=== PATIENT | male | born 1970 ===

== ENCOUNTER 2018-12-13 05:43 | Day surgery (SDC) | payer OTHER ==
--- NOTE | 2018-12-12 18:44 | Pre-Procedure Note/Attestation ---
Pre-Procedure Note/Attestation Complete Prior to Procedure Planned Procedure: not applicable Procedure Narrative: 1. ORIF nasa fracture 2. Septoplasty 3. SMR inf right turbinate 4. SMR inf left turbinate Indications for Procedure Pre-Operative Diagnosis: 1. Nasal fracture 2. Nasal septal deviation 3. Hypertrophied right inferior turbinate 4. Hypertrophied left inferior turbinate Attestation I attest that I discussed the nature of the procedure; its benefits; risks and complications; and alternatives (and the risks and benefits of such alternatives ), prior to the procedure, with the patient (or the patient's legal data entry representative). I attest that, if there was a reasonable possibility of needing a blood transfusion, the patient (or the patient's legal data entry representative) was given the [place] [employer] standardized written summary, pursuant to the José Edmond Blood Safety Act ([place] Health and Safety Code # 1645, as amended). I attest that I re-evaluated the patient just prior to the surgery and that there has been no change in the patient's H&P,labs have been supplied by pts PMD -faxed over 12/12/18: John Jansen MD Dec 12, 2018 18:44
--- NOTE | 2018-12-12 18:45 | Brief Operative Note ---
Immediate Post Operative Note Operative Note Pre-op Diagnosis: 1. Nasal fracture 2. Nasal septal deviation 3. Hypertrophied right inferior turbinate 4. Hypertrophied left inferior turbinate Procedure: 1. ORIF nasa fracture 2. Septoplasty 3. SMR inf right turbinate 4. SMR inf left turbinate Post-op Diagnosis: same as pre-op Surgeon: John Jansen Case Specialist: none Additional Surgeons: none Anesthesiologist: Violetta Anesthesia: general Specimen: none Complications: none Condition: stable Fluids: D5LR Estimated Blood Loss: volume - 50 cc Packing: Stamberger nasal gel Implant(s) used?: No John Jansen MD Dec 12, 2018 18:45
--- NOTE | 2018-12-12 18:49 | Discharge Instructions ---
Discharge Instructions Discharge Instructions Follow up with: Dr. Jansen at his office 12/21/18 11AM Diet: regular Resume Normal Activity?: No Activity: light activity Pneumonia Vaccine: pt refused vaccine Influenza Vaccine (Jul to Dec): pt refused vaccine Follow Up Orders Pt has printed instructions given to him at his pre op visit along with post op meds-Amox and [place] Return to Work/School on: Dec 26, 2018 Special Instructions ice to face x 48 hours For Surgical Patients Dressing Care: may change May shower: No For Congestive Heart Failure Reminder Report to your physician any weight gain of 5 pounds or more in one week. John Jansen MD Dec 12, 2018 18:49
--- NOTE | 2018-12-12 18:59 | History & Physical ---
History of Present Illness General Date patient seen: Nov 30, 2018 Time patient seen: 11:00 Present Illness HPI Nasal fracture at work Allergies: Coded Allergies: No Known Allergies (Unverified , 12/12/18) Patient History History Provided By: Patient Healthcare decision maker Resuscitation status Advanced Directive on File Review of Systems Review of Symptoms General ROS: no weight loss or fever Psychological ROS: no depression or mood changes, no memory loss Ophthalmic ROS: no visual changes or eye irritation ENT ROS: no hearing loss, dizziness. 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 Allergy and Immunology ROS: no allergic symptoms or urticaria Hematological and Lymphatic ROS: no swollen glands, unusual bleeding or bruising Endocrine ROS: no polyuria, polydipsia, weight changes, temperature intolerance Respiratory ROS: no cough, shortness of breath, or wheezing Cardiovascular ROS: no chest pain or dyspnea on exertion Gastrointestinal ROS: denies abdominal pain, bright red blood in stool. Musculoskeletal ROS: no myalgias or arthralgias Neurological ROS: no TIA or stroke symptoms Dermatological ROS: no new or changing skin lesions, rashes or pruritis Physical Exam Physical Exam General appearance: alert, cooperative, no distress, appears stated age NOSE: OFF TO THE RIGHT, SEPTAL DEVIATION, HYPERTROPHIED BILATERAL INFERIOR TURBINATES. Head: Normocephalic, without obvious abnormality, atraumatic Eyes: conjunctivae/corneas clear. PERRL, EOM's intact. Fundi benign Throat: Lips, mucosa, and tongue normal. Teeth and gums normal Neck: supple, symmetrical, trachea midline, no adenopathy, thyroid: not enlarged, symmetric, no tenderness/mass/nodules, no carotid bruit and no JVD Lungs: clear to auscultation bilaterally Heart: regular rate and rhythm, S1, S2 normal, no murmur, click, rub or gallop Abdomen: soft, non-tender. Bowel sounds normal. No masses, no organomegaly Extremities: extremities normal, atraumatic, no cyanosis or edema Pulses: 2+ and symmetric Skin: Skin color, texture, turgor normal. No rashes or lesions Neurologic: Grossly normal HT 64 INCHES, WT 150LBS, BP 120/80, HR 75, RR 13 IN CHART, WERE SENT YESTERDAY TO PER OP. Height (Feet): 5 Height (Inches): 4 Weight (Pounds): 150 Medications Current Medications Medications (Trade) Dose Ordered Sig/[place] Route PRN Reason Start Time Stop Time Status Last Admin Dose Admin Cefazolin Sodium 1 gm/Dextrose 55 ml @ 110 mls/hr ONCE ONCE IV 12/13/18 07:15 12/13/18 07:44 Dexamethasone Sodium Phosphate (Decadron 4mg/ml vial) 8 mg ONCE ONCE IVP 12/13/18 07:00 12/13/18 07:01 Assessment/Plan Status: stable Status Narrative Candidate for 1. ORIF nasa fracture 2. Septoplasty 3. SMR inf right turbinate 4. SMR inf left turbinate Assessment/Plan Cleared for surgery as an outpt. [facility] Hospital declaration INPATIENT level of care is warranted for this patient because patient is a 89 year old with who presents with suspicion of . I have a high level of concern because . Patient is at high risk for . Plan of care/treatment include . Patient care is expected to be greater than 2 midnights. OBSERVATION level of care is warranted for this patient. Patient is a 89 year old with who presents with . Patient will be admitted for 1 midnight, but if additional night(s) is/are necessary, patient will be converted to inpatient status for the entire hospitalization Disposition: Once the patient is stable to leave the hospital, I anticipate the patient will likely be discharged to the following environment: Estimated discharge date: 12/13/18 as outpt. I spent 70 minutes on this patient's case, and 30 minutes was dedicated to counseling and/or care coordination. MIPS ([employer]-based Incentive Payment System) Applicable CPT: 81615, 02107 CHECK ALL THAT ARE MET: Measure #130 The provider has documented, updated, or reviewed the patients current medication list and has documented it in the patients note. MEDICAL COMPLEXITY High complexity medical decision making (need 2/3 categories) Problem - need 4 points Acute/new problem with new plan for workup (4 points, 1 max) Acute/new problem without additional workup (3 points, 1 max) Unstable chronic problem actively being managed (2 point each, 2 max) Stable chronic problem actively being managed (1 point each, 2 max) Self-limited/transient process (constipation, muscle ache, etc) (1 point each , 2 max) Data - need 4 points Reviewed labs/imaging studies (1 points, 2 max) Independent review of imaging (EKG, xrays, etc) (2 points, 2 max) Discussed case with consult/other MD/RN (2 points, 2 max) High Risk - qualify if have one of the following: Severe exacerbation of acute problem, acute mental status change, IV narcotics , monitoring drug levels (vancomycin, INR, tacrolimus etc) John Jansen MD Dec 12, 2018 18:59
[2018-12-13] VITALS (12 sets, daily range): BP systolic 114–134; BP diastolic 68–86
[~2018-12-13] VITALS: Ht 162.6 cm; Wt 68.0 kg
[2018-12-13] MEDS ORDERED: NKM (06:30)
[2018-12-13] MEDS ORDERED: fentaNYL 100 mcg/2 mL IV ONE (06:56)
[2018-12-13] MEDS ORDERED: Midazolam 2mg/2ml Inj ONE (06:56)
[2018-12-13] MEDS ORDERED: Dexamethasone 4mg/ml vial IVP ONE (07:00)
[2018-12-13] MEDS ORDERED: Cocaine HCl 4% 4ml vial TOPIC ONE (07:05)
[2018-12-13] MEDS ORDERED: Ketorolac 30mg Inj ONE (07:06)
[2018-12-13] MEDS ORDERED: Lidocaine 1% MPF 10mg/ml 5ml ONE (07:06)
[2018-12-13] MEDS ORDERED: Lidocaine 1% 10mg/ml/Epi 0.005mg/ml 30ml vial INJ ONE (07:06)
[2018-12-13] MEDS ORDERED: Bupivacaine w/Epi 0.5% 30ml Vial INJ ONE (07:06)
[2018-12-13] MEDS ORDERED: Propofol 200mg/20ml IV ONE (07:06)
[2018-12-13] MEDS ORDERED: ceFAZolin sod 1 GM in D5W 55 ML IV ONE (07:15)
--- NOTE | 2018-12-13 07:36 | Anethesia Preoperative Eval ---
Anesthesia Pre-op PMH/ROS General Date of Evaluation: Dec 13, 2018 Time of Evaluation: 07:34 Anesthesiologist: Floyd ASA Score: ASA 2 Mallampati Score Class I : Soft palate, uvula, fauces, pillars visible Class II: Soft palate, uvula, fauces visible Class III: Soft palate, base of uvula visible Class IV: Only hard plate visible Mallampati Classification: Class II Surgeon: Justyna Diagnosis: Nasal septum Fx Surgical Procedure: Setoplasty Anesthesia History: none Family History: no anesthesia problems Allergies: Coded Allergies: No Known Allergies (Unverified , 12/12/18) Medications: see eMAR Patient NPO?: Yes Past Medical History Cardiovascular: 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; Denies: HTN, CAD, [place], valve dz, other Pulmonary: Denies: asthma, COPD, FLAKITO, other Gastrointestinal/Genitourinary: Reports: GERD - mild; Denies: CRI, ESRD, other Neurologic/Psychiatric: Denies: dementia, CVA, depression/anxiety, TIA, other Endocrine: Denies: DM, hypothyroidism, steroids, other HEENT: Denies: cataract (L), cataract (R), glaucoma, [place] (L), [place] (R), other Hematology/Immune: Denies: anemia, DVT, bleeding disorder, other Musculoskeletal/Integumentary: Denies: OA, RA, DJD, DDD, edema, other PMH Narrative: as above PSxH Narrative: ORIF mandible Fx Anesthesia Pre-op Phys. Exam Physician Exam Last Vital Signs Date Time Temp Pulse Resp B/P (MAP) Pulse Ox O2 Delivery O2 Flow Rate FiO2 12/13/18 06:31 97.8 56 20 134/75 100 Room Air Airway Exam Mallampati Score: Class II Anesthesia Pre-op A/P Labs see chart Studies Pre-op Studies: EKG - SR Risk Assessment & Plan Assessment: ASA2 Plan: GA with LMA Status Change Before Surgery: No Pre-Antibiotics Drug: Ancef 1gr. Given Within 1 Hr of Incision: Yes Time Given: 07:48 Jose L Shipley MD Dec 13, 2018 07:36
[2018-12-13] MEDS ORDERED: Meperidine 50mg/ml Inj(FOR RIGORS ONLY) IV PRN (08:00)
[2018-12-13] MEDS ORDERED: Dexamethasone 4mg/ml vial ONE (08:00)
[2018-12-13] MEDS ORDERED: LR 1000ml 1,000 ML IVLG SCH (08:00)
[2018-12-13] MEDS ORDERED: Ketorolac 30mg Inj IV PRN (08:00)
[2018-12-13] MEDS ORDERED: LR 1000ml ONE (08:00)
[2018-12-13] MEDS ORDERED: NS Irrig 1000ml ONE (08:00)
[2018-12-13] MEDS ORDERED: Sterile Water Irrig 1000ml IRRIG ONE (08:00)
[2018-12-13] MEDS ORDERED: DiphenhydrAMINE 50mg/ml Inj IVP PRN (08:00)
--- NOTE | 2018-12-13 08:34 | Immediate Post-Op Evaluation ---
Immediate Post-Op Evalulation Immediate Post-Op Evalulation Procedure: Septoplasty turbinate ablasion Date of Evaluation: Dec 13, 2018 Time of Evaluation: 08:33 IV Fluids: 600 Blood Products: none Estimated Blood Loss: 50 Urinary Output: none Blood Pressure Systolic: 132 Blood Pressure Diastolic: 71 Pulse Rate: 64 Respiratory Rate: 20 O2 Sat by Pulse Oximetry: 98 Temperature (Fahrenheit): 97.6 Pain Score (1-10): 1 Nausea: No Vomiting: No Complications none Patient Status: reacts, patent, none Hydration Status: adequate Jose L Shipley MD Dec 13, 2018 08:34
[2018-12-13] MEDS ORDERED: Norco 5mg/325mg tab ORAL PRN (08:45)
[2018-12-13] MEDS ORDERED: HYDROmorphone 1mg/ml Carpuject SUBQ PRN (08:45)
[2018-12-13] MEDS ORDERED: Metoclopramide 10mg/2ml Inj IVP PRN (08:45)
--- NOTE | 2018-12-13 10:50 | 48 Hour Post Anesthesia Eval ---
Post Anesthesia Evaluation Procedure: Septoplasty turbinate ablasion Date of Evaluation: Dec 13, 2018 Time of Evaluation: 10:49 Blood Pressure Systolic: 126 0: 72 Pulse Rate: 68 Respiratory Rate: 20 Temperature (Fahrenheit): 97.6 O2 Sat by Pulse Oximetry: 98 Airway: patent Nausea: No Vomiting: No Pain Intensity: 2 Hydration Status: adequate Cardiopulmonary Status: stable Mental Status/LOC: patient returned to baseline Follow-up Care/Observations: n/a Post-Anesthesia Complications: none Follow-up care needed: ready to discharge Jose L Shipley MD Dec 13, 2018 10:50
--- NOTE | 2018-12-13 18:15 | Operative Note - Dictated ---
DATE OF OPERATION: 12/13/2018 SURGEON: John Jansen M.D. GATHERING MACHINE SETTER: None. ANESTHESIOLOGIST: Jose L Shipley M.D. ANESTHESIA: Oral endotracheal anesthesia as well as 15 mL 50:50 mixture 1% lidocaine with 1:100,000 epinephrine and 0.5% bupivacaine with 1:200,000 epinephrine. Additionally 4 mL of 4% topical cocaine placed on four nasal pledgets, two on either nostril accounted for at the end of the case. INDICATION FOR SURGERY: Nasal fracture, septal deviation, hypertrophied right and left inferior turbinates. PREOPERATIVE DIAGNOSES: Nasal fracture, septal deviation, hypertrophied right and left inferior turbinates. POSTOPERATIVE DIAGNOSES: Nasal fracture, septal deviation, hypertrophied right and left inferior turbinates. FINDINGS: Nasal fracture, septal deviation, hypertrophied right and left inferior turbinates. PROCEDURE: 1. Open reduction and internal fixation nasal fracture. 2. Septoplasty. 3. Submucous resection, left inferior turbinate. 4. Submucous resection, right inferior turbinate. TECHNIQUE: The patient was prepped and draped in usual manner via oral endotracheal anesthesia. Time-out was performed and all agreed as to the procedures and equipment to be done and required. Injection with the aforementioned lidocaine, Marcaine, and epinephrine was performed as well as the prep and placing nasal pledgets in either nostril. Initially, I made an incision in the anterior inferior aspect of the right inferior turbinate with a 15 blade. Radiofrequency wand coated with saline gel was placed in the inferior turbinate x2 10 seconds on a setting of 6. I then outfractured the inferior turbinate. I then turned my attention to the contralateral inferior turbinate. Incision made with a 15 blade and 2 passes with saline gel coated radiofrequency needle setting of 6, 10 seconds each time. Again, I then outfractured with a Boies elevator. A Humphrey incision made on the left hand side of the septum with a 15 blade. The vomer was removed with a small osteotome and then sewn back in place. I then turned my attention to the medial curve of the lower lateral cartilage. This was dissected out. Lower half was removed and sewn back together with a 4-0 plain suture. I then proceeded to make stab incisions inside the lower lateral nares between the cartilage space with a 15 blade. I then elevated over the anterior nose periosteum and perichondrium with an Al[place]reck. I then used a straight guarded osteotome to make a medial osteotomy and then a low lateral osteotomy. It was broken, so there was no greenstick fracture and put back into position. I then suctioned the nose clean. Cleaned the nose on the outside. Skin prep, tape, and stent was placed. I then proceeded to place Stammberger nasal gel, half syringe in either nostril. Mustache dressing was placed. Sponge and needle count was correct. EBL: 50 mL. COUNTS: None. DRAINS: None. Half hour after extubation in the recovery room when I am dictating this note, the patient's mustache dressing has 1 little spot of blood on the left naris, otherwise he has no bleeding, dry, well controlled. He is stable. John Jansen M.D. DR: NICCI JOB#: [id number] CC: CHEYANNE
== END 2018-12-13 10:10 | disposition home or self-care (01) ==
LOC: SUR 05:43
DX: S02.2XXA Fracture of nasal bones, initial encounter for closed fracture (principal); J34.2 Deviated nasal septum; J34.3 Hypertrophy of nasal turbinates; I45.6 Pre-excitation syndrome; K21.9 Gastro-esophageal reflux disease without esophagitis
CPT/HCPCS: 30140; 30520; J0690; J1100; J1885; J2250; J2704; J3010; 94003; 94150